=== PATIENT | female | born 1975 | race Caucasian/White ===

== ENCOUNTER 2022-06-11 14:39 | Emergency (ER) | payer OTHER, SELFPAY ==
--- NOTE | 2022-06-11 14:43 | ED.FEMALEGU ---
HPI - Female Genitourinary General Stated complaint: Poss UTI Time Seen by Provider: 06/11/22 14:43 Source: patient Mode of arrival: ambulatory Limitations: no limitations History of Present Illness HPI Narrative: Ms. Sofia is a 46-year-old female patient presenting to the clinic today with complaints of possible urinary tract infection x2 to 3 days. She reports she is having urinary frequency and some discomfort with urination. She denies any abdominal pain or flank pain. She denies any fever or chills. Patient is requesting a urine test in the clinic today.. Last menstrual period was May 17. Related Data Home Medications Medication Instructions Recorded Confirmed albuterol sulfate 90 mcg/actuation 90 mcg inhalation DIRECTED 06/11/22 06/11/22 aerosol inhaler alprazolam 0.5 mg tablet 0.5 mg DIRECTED 06/11/22 06/11/22 buspirone 15 mg tablet 15 mg DIRECTED 06/11/22 06/11/22 duloxetine 60 mg capsule,delayed 60 mg PO DIRECTED 06/11/22 06/11/22 release fluticasone propionate 50 50 mcg intranasal DIRECTED 06/11/22 06/11/22 mcg/actuation nasal spray,suspension lisinopril 10 mg tablet 10 mg DIRECTED 06/11/22 06/11/22 omeprazole 20 mg capsule,delayed 20 mg DIRECTED 06/11/22 06/11/22 release Allergies Allergy/AdvReac Type Severity Reaction Status Date / Time No Known Allergies Allergy Verified 06/11/22 14:58 Review of Systems Review of Systems: Pertinent positives per HPI. Patient denies any fever, chills, rash, headache, visual changes, dizziness, cough, runny nose, sore throat, shortness of breath, chest pain, palpitations, nausea, vomiting, diarrhea, constipation, abdominal pain. PMFSH Comments At the time of my signature, I reviewed and agree with the nursing past medical, surgical, social, and family history. There is no relevant family history pertinent to the patient complaint. Exam Narrative: General: Well-developed, well nourished, in no apparent distress. Head: Normocephalic, atraumatic. Cardio: Regular rate and rhythm, s1 and s2 normal, no murmur appreciated. Resp: Clear to auscultation bilaterally, no rhonchi, rales, wheezing or rubs. Abdomen: Soft, pliable, bowel sounds present in all quadrants, non-tender to palpation, no organomegly, no CVAT tenderness. Course Course Emergency Course: Portions of this record may have been created with voice recognition software. Level of Care: Express Care Visit Vital Signs Vital signs: Vital signs reviewed MDM - Female Genitourinary MDM Narrative Medical decision making narrative: At the time of visit patient is resting comfortably on the exam table. Urinanylsis and preg test was obtained. Urinalysis negative for any sign of infection or blood. Urine test was negative in the clinic today. I suspect the patient may be suffering from an overactive bladder and recommend decreasing caffeine. Supportive measures were discussed with the patient she voiced understanding of discharge instructions and agrees to treatment plan Differential Diagnosis Differential diagnosis: Likely urinary tract infection, cystitis and other (Overactive bladder, interstitial cystitis) Discharge Plan Discharge Clinical Impression: Dysuria, Urinary frequency Patient Disposition: Home, Self-Care Condition: Stable Instructions: Antibiotic Form, Dysuria (ED), Urinary Urgency and Frequency (DC) Additional Instructions: U/A negative for any sign of infection or blood. Increase fluids and stay well hydrated Avoid caffeine as this could be caused by pain overactive bladder Wipe front to back. May use wet wipes. Avoid tub baths If sexually active- pee before and after intercourse. Wear cotton panties Avoid tight clothing up against the genitals Follow up with your PCP in 1 week if symptoms persist. Follow-up/Referrals: PHYSICIAN NOT ON STAFF,NONSTAFF [Primary Care Provider] - Time of Disposi
[2022-06-11 14:50] VITALS: BP 115/76; PULSE 89; RESP 16; TEMP 37.1; O2SAT 100
== END 2022-06-11 15:17 | disposition home or self-care (01) ==
PROVIDERS: Emergency Provider Nurse Practitioner Family
DX: R30.0 Dysuria (principal); R35.0 Frequency of micturition; I10 Essential (primary) hypertension; F41.9 Anxiety disorder, unspecified
CPT/HCPCS: 81003; 81025; 99212; G0463